=== PATIENT | female | born 1960 | race Two or more races ===

== ENCOUNTER 2023-11-30 07:26 | Inpatient (IN) | payer OTHER ==
[~2023-11-30] VITALS: Ht 157.5 cm; Wt 51.3 kg
[2023-11-30 08:26] LABS: Basophils # (auto) 0 10 ^3/uL (0-0.2); Basophils % (auto) 0.4 % (0.0-2.0); Eosinophils # (auto) 0 10 ^3/uL (0-0.8); Hematocrit 43.7 % (36.0-46.0); Hemoglobin 14.6 g/dL (12.2-16.2); Lymphocytes # (auto) 0.7 10 ^3/uL (0.4-5.4); Lymphocytes % (auto) 5.4 % (10.0-50.0); Mean Corpuscular Hemoglobin 29.9 pg (28.0-32.0); Mean Corpuscular Hgb Conc. 33.3 g/dL (32.0-36.0); Mean Corpuscular Volume 89.8 fL (80.0-100.0); Monocytes # (auto) 1.4 10 ^3/uL (0-1.3); Monocytes % (auto) 10.4 % (0.0-12.0); Neutrophils % (auto) 83.8 % (37.0-80.0); Nucleated Red Blood Cells % 0.1 %; Red Blood Cells 4.87 10^6/uL (4.0-5.20); White Blood Cell 13.2 10^3/uL (4.4-10.8)
[2023-11-30 08:41] LABS: Chloride 100 mmol/L (98-107); Potassium 3.9 mmol/L (3.5-5.1); Sodium 133 mmol/L (136-145)
[2023-11-30 08:42] LABS: Anion Gap 7 (5-15); Carbon Dioxide 26 mmol/L (20-30)
[2023-11-30 08:43] LABS: Calcium 9.8 mg/dL (8.5-10.1)
[2023-11-30 08:47] LABS: BUN/Creatinine Ratio 17.1 (10.0-20.0); Blood Urea Nitrogen 14 mg/dL (9-23); Glucose 130 mg/dL (74-106)
[2023-11-30] MEDS: MORPHINE SULFATE 4 MG/ML SYR/VIAL IV ONE (09:00)
[2023-11-30] MEDS: ONDANSETRON HCL 4 MG/2 ML VIAL IV ONE (09:38)
[2023-11-30] MEDS: SODIUM CHLORIDE 0.9% 1,000 ML IV ONE (10:29)
[2023-11-30] MEDS: MORPHINE SULFATE INJ 2 MG/ml SYRG ONE (11:23)
[2023-11-30] MEDS: MORPHINE SULFATE INJ 2 MG/ml SYRG IV ONE (11:24)
[2023-11-30 12:29] LABS: INR 0.99 (0.9-1.15); Prothrombin Time 10.4 sec (9.3-11.8)
[2023-11-30] MEDS: SODIUM CHLORIDE 0.9% 1,000 ML IV SCH (12:38)
[2023-11-30] MEDS: PIPERACILLIN-TAZOB 3.375GM 100 ML IV SCH (12:38)
[2023-11-30 15:42] VITALS: BP 104/61; PULSE 65; RESP 18; TEMP 97.8; O2SAT 96
[2023-11-30] MEDS: ONDANSETRON HCL 4 MG/2 ML VIAL IV PRN (16:52)
[2023-11-30] MEDS: MORPHINE SULFATE INJ 2 MG/ml SYRG IV PRN (17:02)
[2023-11-30 17:32] LABS: Urine Bacteria FEW /hpf (None Seen); Urine Blood Negative /uL (Negative); Urine Clarity HAZY (Clear); Urine Color Yellow (Yellow); Urine Hyaline Cast FEW /lpf (0 - 2); Urine Mucus FEW (None Seen); Urine Protein, UAD 1+ (Negative); Urine Specific Gravity 1.029 (1.001-1.035); Urine Urobilinogen Normal (Negative); Urine WBC <1 /hpf (0 - 5)
[2023-11-30 20:00] VITALS: BP 105/60; PULSE 65; RESP 18; TEMP 98.3; O2SAT 92
[2023-12-01] VITALS (7 sets, daily range): BP systolic 97–119; BP diastolic 60–64; PULSE 61–70; RESP 16–20; TEMP 97.5–98.4; O2SAT 92–99
[2023-12-01 05:44] LABS: Basophils # (auto) 0 10 ^3/uL (0-0.2); Basophils % (auto) 0.3 % (0.0-2.0); Eosinophils # (auto) 0 10 ^3/uL (0-0.8); Eosinophils % (auto) 0.3 % (0.0-7.0); Hematocrit 39.2 % (36.0-46.0); Hemoglobin 13.2 g/dL (12.2-16.2); Lymphocytes # (auto) 0.8 10 ^3/uL (0.4-5.4); Lymphocytes % (auto) 7.3 % (10.0-50.0); Mean Corpuscular Hgb Conc. 33.6 g/dL (32.0-36.0); Mean Corpuscular Volume 89.5 fL (80.0-100.0); Monocytes # (auto) 1.3 10 ^3/uL (0-1.3); Monocytes % (auto) 11.5 % (0.0-12.0); Neutrophils # (auto) 8.8 10 ^3/uL (1.6-8.6); Neutrophils % (auto) 80.6 % (37.0-80.0); Red Blood Cells 4.38 10^6/uL (4.0-5.20); Red Cell Distribution Width 14.2 % (11.8-14.3)
[2023-12-01 06:18] LABS: Alanine Aminotransferase 15 U/L (7-40); Albumin 3.7 g/dL (3.2-4.8); Alkaline Phosphatase 41 U/L (46-116); Anion Gap 8 (5-15); Aspartate Aminotransferase 22 U/L (13-40); BUN/Creatinine Ratio 25.4 (10.0-20.0); Blood Urea Nitrogen 16 mg/dL (9-23); Calcium 8.7 mg/dL (8.5-10.1); Carbon Dioxide 24 mmol/L (20-30); Chloride 104 mmol/L (98-107); Glucose 98 mg/dL (74-106); Potassium 3.6 mmol/L (3.5-5.1); Sodium 136 mmol/L (136-145)
[2023-12-01 06:19] LABS: Bilirubin, Total 1.1 mg/dL (0.2-1.0); Total Protein 5.6 g/dL (5.7-8.2)
[2023-12-01] MEDS: PANTOPRAZOLE 40 MG/10 ML VIAL INJ IV SCH (10:17)
[2023-12-01] MEDS: GASTROGRAFIN 120 ML SOL ONE (11:18)
[2023-12-01] MEDS: PIPERACILLIN-TAZOB 3.375GM 100 ML IV SCH (23:09)
[2023-12-02] VITALS (7 sets, daily range): BP systolic 100–127; BP diastolic 49–72; PULSE 55–61; RESP 16–20; TEMP 97.7–98.2; O2SAT 95–98
[2023-12-02] MEDS: TEMAZEPAM 15 MG CAP PO ONE (23:47)
[2023-12-03] VITALS (7 sets, daily range): BP systolic 103–127; BP diastolic 61–76; PULSE 49–62; RESP 15–18; TEMP 97.4–98.3; O2SAT 96–99
[2023-12-03] MEDS: TEMAZEPAM 15 MG CAP PO PRN (23:07)
[2023-12-04 05:00] VITALS: BP 110/59; PULSE 51; RESP 18; TEMP 98; O2SAT 97
[2023-12-04 09:00] VITALS: BP 115/49; PULSE 48; RESP 16; TEMP 98; O2SAT 95
[2023-12-04 12:38] VITALS: BP 115/49; PULSE 48; RESP 16; TEMP 98; O2SAT 95
== END 2023-12-04 13:52 | disposition home or self-care (01) | DRG 389 ==
LOC: ER 07:26 → OVERFLOW 11:59 → WEST WING 15:27
PROVIDERS: ADMIT Nurse Practitioner Family; ATTEND Family Medicine
DX: K56.609 Unspecified intestinal obstruction, unspecified as to partial versus complete obstruction (principal); E87.1 Hypo-osmolality and hyponatremia; E86.0 Dehydration; M79.7 Fibromyalgia; K59.09 Other constipation; R74.8 Abnormal levels of other serum enzymes; Z82.0 Family history of epilepsy and other diseases of the nervous system; Z90.710 Acquired absence of both cervix and uterus
CPT/HCPCS: 36415; 74018; 74176; 74250; 80048; 80053; 81001; 83690; 85025; 85610; 86850; 86900; 86901; 96365; 96375; C9113; G0378; J2405; J2543